=== PATIENT | female | born 1965 ===

== ENCOUNTER 2021-03-06 07:29 | Emergency (ER) | payer MEDICARE, MEDICAID, OTHER ==
[~2021-03-06] VITALS: Ht 154.9 cm; Wt 104.3 kg
[2021-03-06 09:23] VITALS: BP 143/92
== END 2021-03-06 09:38 | disposition home or self-care (01) ==
LOC: EDBD 07:29 → ER 07:29
DX: S16.1XXA Strain of muscle, fascia and tendon at neck level, initial encounter (principal); S29.011A Strain of muscle and tendon of front wall of thorax, initial encounter; E11.9 Type 2 diabetes mellitus without complications; I10 Essential (primary) hypertension; V49.59XA Passenger injured in collision with other motor vehicles in traffic accident, initial encounter; Y93.89 Activity, other specified; Y92.488 Other paved roadways as the place of occurrence of the external cause; Y99.8 Other external cause status
CPT/HCPCS: 71046; 72040; 93005